=== PATIENT | male | born 2000 | race Caucasian/White ===

== ENCOUNTER 2020-03-20 12:23 | Outpatient (REF) | payer OTHER, SELFPAY ==
[2020-03-20 13:36] LABS: MANUAL DIFF FLAG NO
[2020-03-20 13:52] LABS: Basophils Percent Auto 0.3 % (0-2); Eosinophils Absolute Auto 0.2 X10*3/uL (0.0-0.4); Eosinophils Percent Auto 2.5 % (0-4); Hematocrit 47.8 % (42-52); Hemoglobin 16.1 g/dl (14.0-18.0); Imm Gran Abs Auto 0.05 X10*3/uL (0.00-0.03); Imm Gran Pct Auto 0.5 % (0.0-0.4); Lymphocytes Absolute Auto 2.6 X10*3/uL (1.2-4.9); Lymphocytes Percent Auto 26.4 % (20-40); Mean Corpuscular HGB Conc 33.7 g/dl (31.0-36.0); Mean Platelet Volume 10.4 fL (9.4-12.4); Monocytes Absolute Auto 0.7 X10*3/uL (0.1-1.2); Monocytes Percent Auto 6.7 % (2-11); Neutrophils Absolute Auto 6.1 X10*3/uL (2.0-8.3); Neutrophils Percent Auto 63.6 % (45-73); Platelet Count 331 X10*3/uL (160-400); Red Blood Count 5.56 X10*6/uL (4.60-5.80); Red Cell Distribution Width 11.8 % (11.0-16.0); White Blood Count 9.7 X10*3/uL (4.8-10.8)
[2020-03-20 14:23] LABS: Alanine Aminotransferase 40 U/L (0-40); Alkaline Phosphatase 76 U/L (39-117); Anion Gap 12 (12-20); Aspartate Amino Transferase 22 U/L (5-37); Bilirubin Total 0.6 mg/dL (0.0-1.0); Blood Urea Nitrogen 15 mg/dL (9-16); Calcium 9.7 mg/dL (8.4-10.2); Carbon Dioxide 27 mmol/L (22-29); Chloride 103 mmol/L (96-108); Estimated Glomerular Filt Rate > 60; Glucose Fasting 93 mg/dL (60-99); Potassium 5.2 mmol/l (3.3-5.1); Sodium 137 mmol/L (135-145); Total Protein 7.6 g/dL (6.5-8.0)
[2020-03-20 14:37] LABS: Estimated Average Glucose 97 mg/dL
[2020-03-20 14:43] LABS: Thyroid Stimulating Hormone 1.26 uIU/mL (0.32-4.0)
== END 2020-03-20 12:24 | disposition home or self-care (01) ==
LOC: HO.LAB 12:23
PROVIDERS: PCP Physician Assistant; Visit Provider Physician Assistant
DX: Z13.29 Encounter for screening for other suspected endocrine disorder (principal); I10 Essential (primary) hypertension; E66.01 Morbid (severe) obesity due to excess calories
CPT/HCPCS: 36415; 80053; 83036; 84443; 85025

== ENCOUNTER 2020-03-22 07:42 | Outpatient (REF) | payer OTHER, SELFPAY ==
[2020-03-22 09:19] LABS: Creatinine Urine 239.53 mg/dL; Microalbum/Creatinine Ratio Ur 3.7 ug/mg cr
== END 2020-03-22 07:43 | disposition home or self-care (01) ==
LOC: HO.LNP 07:42
PROVIDERS: Visit Provider Physician Assistant
DX: Z13.29 Encounter for screening for other suspected endocrine disorder (principal); I10 Essential (primary) hypertension; E66.01 Morbid (severe) obesity due to excess calories
CPT/HCPCS: 82043

== ENCOUNTER 2020-06-14 11:53 | Outpatient (REF) | payer OTHER, SELFPAY ==
[2020-06-14 12:32] LABS: MANUAL DIFF FLAG NO
[2020-06-14 12:39] LABS: Basophils Percent Auto 0.5 % (0-2); Eosinophils Absolute Auto 0.2 X10*3/uL (0.0-0.4); Eosinophils Percent Auto 2.3 % (0-4); Hematocrit 47.3 % (42-52); Imm Gran Abs Auto 0.03 X10*3/uL (0.00-0.03); Imm Gran Pct Auto 0.4 % (0.0-0.4); Lymphocytes Absolute Auto 2.5 X10*3/uL (1.2-4.9); Lymphocytes Percent Auto 29.4 % (20-40); Mean Corpuscular HGB Conc 33.8 g/dl (31.0-36.0); Mean Corpuscular Hemoglobin 28.9 pg (27.0-33.0); Mean Corpuscular Volume 85.5 fL (80-98); Mean Platelet Volume 9.9 fL (9.4-12.4); Monocytes Absolute Auto 0.6 X10*3/uL (0.1-1.2); Monocytes Percent Auto 7.3 % (2-11); Neutrophils Absolute Auto 5.1 X10*3/uL (2.0-8.3); Neutrophils Percent Auto 60.1 % (45-73); Platelet Count 338 X10*3/uL (160-400); Red Blood Count 5.53 X10*6/uL (4.60-5.80); Red Cell Distribution Width 11.6 % (11.0-16.0); White Blood Count 8.5 X10*3/uL (4.8-10.8)
[2020-06-14 13:05] LABS: Alanine Aminotransferase 33 U/L (0-40); Albumin Level 4.7 g/dL (3.5-5.0); Alkaline Phosphatase 78 U/L (39-117); Anion Gap 12 (12-20); Aspartate Amino Transferase 20 U/L (5-37); Blood Urea Nitrogen 13 mg/dL (9-16); Calcium 9.5 mg/dL (8.4-10.2); Carbon Dioxide 27 mmol/L (22-29); Chloride 103 mmol/L (96-108); Cholesterol 185 mg/dL; Estimated Glomerular Filt Rate > 60; Glucose Fasting 89 mg/dL (60-99); HDL Cholesterol 45 mg/dL; LDL Cholesterol Calculated 115 mg/dl; Sodium 137 mmol/L (135-145); Total Protein 7.3 g/dL (6.5-8.0); Triglycerides 127 mg/dL
[2020-06-14 13:35] LABS: Microalbumin Urine < 5.0 mg/L
== END 2020-06-14 11:54 | disposition home or self-care (01) ==
LOC: HO.LAB 11:53
PROVIDERS: PCP Physician Assistant; Visit Provider Physician Assistant
DX: I10 Essential (primary) hypertension (principal); E78.1 Pure hyperglyceridemia
CPT/HCPCS: 36415; 80053; 80061; 82043; 85025

== ENCOUNTER 2021-05-23 08:36 | Outpatient (REF) | payer OTHER, SELFPAY ==
--- NOTE | ~2021-05-23 | XR_ITS ---
EXAMINATION: XR WRIST, LEFT CLINICAL INFORMATION: Pain COMPARISON: None TECHNIQUE: PA, lateral, and oblique views of the left wrist. FINDINGS: The bones and soft tissues are normal. No fracture. Alignment is anatomic with normal joint spaces. No erosions or abnormal soft tissue calcifications. XR/XR wrist LT min 3V IMPRESSION: No radiographic evidence of acute osseous changes to explain patient's pain symptoms.
== END 2021-05-23 08:37 | disposition home or self-care (01) ==
LOC: HO.HOSX 08:36
PROVIDERS: Visit Provider Physician Assistant
DX: M67.432 Ganglion, left wrist (principal)
CPT/HCPCS: 73110

== ENCOUNTER 2023-06-26 15:49 | Outpatient (AMB) | payer OTHER, SELFPAY ==
[2023-06-26 15:50] VITALS: BP 116/82; PULSE 75; O2SAT 99; BMI 32.9
--- NOTE | 2023-06-26 15:50 | MHC.PC.OV ---
Vital Signs 06/26/23 15:50 Height 5 ft 5 in Weight 198 lb 0.4 oz BMI 32.9 BP 116/82 Blood Pressure Location Lt brachial Position Sitting Pulse 75 Pulse Source Pulse Oximeter Pulse Oximetry (%) 99 Oxygen Delivery Method Room Air Intake Visit Reasons: Annual PE Intake Note: Patient is here today for a physical. 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 Allergies sulfamethoxazole [From BACTRIM] Allergy (Intermediate, Verified 06/26/23 16:13) HIVES amoxicillin Allergy (Unknown, Verified 06/26/23 16:13) Unknown citalopram [From Celexa] Allergy (Unknown, Verified 06/26/23 16:13) sleep disturbances Sulfa (Sulfonamide Antibiotics) Allergy (Unknown, Verified 06/26/23 16:13) Unknown Medication List - Last Reconciled 06/26/23 by Kannan Ziegler PA-C bupropion HCl 150 mg PO QAM 90 days hydroxyzine HCl 25 mg PO BID PRN 30 days lisinopril 10 mg PO DAILY 90 days sertraline 100 mg PO DAILY 30 days Tobacco use date assessed: 06/26/23 Dental Screening Dental Screen Date: 06/26/23 Did you have a dental visit in the last 12 months?: Yes Did you have a dental problem in the last 6 months where you did not have access to dental care?: No Was dental information given to patient?: Patient has dentist HPI Annual PE HPI Details Patient is a 23-year-old male here today for a annual physical.? Patient has a past medical history significant for anxiety, hypertension, depression, obesity. .. HTN:? Patient's blood pressure acceptable today in office. Continues on daily use of lisinopril 10 mg and feels it has been effective for him. He denies any headaches, blurred vision, chest pain or palpitations. .. EARL: talking to a therapist a feels his anxiety is well controlled, and has been taking hydroxyzine on a PRN basis.? He feels his current dose Wellbutrin is helpful. .. Obesity:? Has been working hard on losing weight.? He has started to do a martial arts class and has been watching his diet.? His managed to lose a small amount of weight since last visit.? His goal weight is to be 195lbs Vaccine: Up-to-date with tetanus, COVID, declines flu shot [facility] Surgical History History of appendectomy History of tonsillectomy Family History Father Myocardial infarction, Onset Age: 38 Mother No problems noted. Social History (Updated 06/26/23 @ 16:16 by Kannan Ziegler PA-C) Housing: Apartment Alcohol intake: current Alcohol intake frequency: holidays/special occasions only Alcohol type: beer Patient Tobacco Use Status: Never used Tobacco e-Cigarette/Vaping Use: Never Used Second Hand Smoke Exposure: No service: No Current occupational status: employed Current occupation: [employer] Cognitive needs: No Hearing needs: No Vision needs: No Questionnaire PHQ-9 Over the last 2 weeks, how often have you been bothered by any of the following problems? 1. Little interest or pleasure in doing things: not at all 2. Feeling down, depressed, or hopeless: not at all 3. Trouble falling or staying asleep, or sleeping too much: not at all 4. Feeling tired or having little energy: not at all 5. Poor appetite or overeating: not at all 6. Feeling bad about yourself - or that you are a failure or have let yourself or your family down: not at all 7. Trouble concentrating on things, such as reading the newspaper or watching television: not at all 8. Moving or speaking so slowly that other people could have noticed. Or the opposite - being so fidgety or restless that you have been moving around a lot more than usual: not at all 9. Thoughts that you would be better off or of hurting yourself in some way: not at all Total score: 0 Depression Screening Interpretation: Negative Depression Screening Done: Yes [id number] - PHQ-9 Billing: Yes Source: Developed by Drs. Damon Del Toro, Abeba Lieberman, Enoch Dumont and colleagues, with an educational jasvir from [employer]. Thrive Questionnaire Date Thrive assessed: 08/20/21 I am a: Patient What is your living situation today?: I have a steady place to live Within the past 12 months, did the food you bought not last and you didn't have the money to get more?: Never true Within the past 12 months, did you worry whether your food would run out before you got money to buy more?: Never true Do you have trouble paying for medicines?: No Do you have trouble getting transportation to medical appointments?: No Do you have trouble paying your heating and electricity bill?: No Do you have trouble taking care of your child, family member or friend?: No Do you have trouble with day-to-day activities such as bathing, preparing meals, shopping, managing finances, etc.?: No Are you currently unemployed and looking for a job?: No Are you interested in more education?: No Please select the resources that you would like help with: None THRIVE Score: 0 AUDIT C Alcohol Use Questionnaire (AUDIT-C) 1. How often do you have a drink containing alcohol?: 2-4 times a month 2. How many drinks containing alcohol do you have on a typical day when you are drinking?: 3 or 4 3. How often do you have six or more drinks on one occasion?: Never Total Score: 3 EARL-7 AMB Questionnaire EARL-7 Date EARL - 7 assessed: 06/26/23 Feeling nervous, anxious, or on edge: 0 = Not at all Not being able to stop or control worryin = Not at all Worrying too much about different things: 0 = Not at all Trouble relaxin = Not at all Being so restless that it is hard to sit still: 0 = Not at all Becoming easily annoyed or irritable: 0 = Not at all Feeling afraid as if something awful might happen: 0 = Not at all Total EARL-7 score (0-4 normal; 5-9 mild; 10-14 moderate; 15-21 severe): 0 Source: Developed by Drs. Damon Del Toro, Abeba Lieberman, Enoch Dumont and colleagues, with an educational jasvir from [employer]. EARL-7 Assessment Billing EARL-7 Assessment Tool: EARL-7 Assessment 02018 Review of Systems Const Denies body aches, Denies chills, Denies excessive sweating, Denies fatigue, Denies fever(s) and Denies headache(s) Eyes Denies blurry vision ENT Denies dysphagia, Denies vertigo, Denies dizziness, Denies headache(s), Denies hearing loss and Denies tinnitus Card Denies chest pain, Denies chest pain with activity, Denies syncope, Denies irregular heart rhythm and Denies dyspnea Resp Denies chest congestion, Denies cough, Denies hemoptysis, Denies dyspnea and Denies wheezing GI Denies abdominal pain, Denies melena, Denies hematochezia, Denies coffee ground emesis, Denies dysphagia, Denies diarrhea, Denies nausea and Denies vomiting Denies difficulty urinating, Denies dysuria, Denies urinary frequency, Denies urinary hesitancy and Denies urinary urgency Musc Denies arthralgias, Denies limited range of motion, Denies muscle cramps and Denies muscle weakness Skin/Breast Denies rash and Denies skin ulcer Neuro Denies Abnormal speech present, Denies confusion, Denies vertigo, Denies dizziness, Denies syncope, Denies headache(s), Denies memory loss and Denies seizure-like activity Psych Denies anxiety, Denies confusion, Denies depression, Denies memory loss, Denies panic attacks and Denies paranoia Endo Denies excessive sweating, Denies fatigue, Denies flushing, Denies polydipsia and Denies polyuria Aller/Immun Denies wheezing Physical exam (Primary Care) Vital Signs: Last Vital Signs Pulse 75 06/26/23 15:50 BP 116/82 06/26/23 15:50 Pulse Ox 99 06/26/23 15:50 Oxygen Delivery Method Room Air 06/26/23 15:50 BMI result Body Mass Index 32.9 BMI Assessment/Plan discussion: High Tobacco/Smoking Status: Tobacco use Status Tobacco use date assessed 06/26/23 06/26/23 15:51 Patient Tobacco Use Status Never used Tobacco 06/26/23 15:51 Tobacco use type 04/25/21 11:19 e-Cigarette/Vaping Use Never Used 06/26/23 15:51 PHQ-9: PHQ-9 Score PHQ-9: Total score 0 06/26/23 16:08 Depression Screening Interpretation: Negative Thrive Assessment: Date of Thrive Assessment Date Thrive assessed 08/20/21 06/26/23 15:51 Const Other: Obese General: cooperative, comfortable, no acute distress, alert and awake; No confusion Orientation/consciousness: oriented to person, oriented to place, patient oriented x3 and No confusion HENMT Head: Yes normocephalic Ears: external ears normal and TM's normal bilaterally Face and sinus: No sinus tenderness Mouth: Normal oral and palatal mucosa present and tongue normal Teeth and gingiva: dentition normal and gingiva normal Throat: Yes posterior oropharynx normal, Yes tonsils normal and Yes uvula midline Eyes Conjunctivae: conjunctivae normal Sclerae: sclerae normal Pupils: Equal, round and reactive pupils present EOM: EOMs intact bilaterally Direct Ophthalmoscopy: No no photophobia Neck Neck: Yes no lymphadenopathy, No tender and Yes no JVD Thyroid: Thyroid normal Carotids: no bruits Chest Chest palpation & inspection: no tenderness Resp Effort & Inspection: normal respiratory effort, no audible wheezes, not labored and no stridor Auscultation: no crackles, no rales, no rhonchi and no wheezes Cardio Jugular venous distension: no JVD Rate: regular rate, not bradycardic and not tachycardic Rhythm: regular rhythm Bruits: no carotid bruits Peripheral pulses: Peripheral pulses 2+ throughout GI Inspection: Yes normal to inspection, No abdominal wall ecchymosis and No visible herniation Palpation (GI): Soft to palpation, nontender, no guarding, not rigid and No hepatosplenomegaly present Auscultation: normoactive bowel sounds General: Yes no CVA tenderness Back/Spine/Pelvis Back: no CVA tenderness and No back tenderness Cervical Spine: cervical ROM normal Thoracic/Lumbar Spine: thoracic and lumbar spine normal to inspection, straight leg raise negative bilaterally, No thoraco-lumbar ROM limited and No lumbar spinal tenderness Skin Lesions: no lesions Rashes: no rashes Wounds: no wounds Neuro General: oriented to person, oriented to place, patient oriented x3, CN's II-XI intact bilaterally and No confusion Cranial nerves: Yes Equal, round and reactive pupils present and Yes Normal accommodation reflex present Cognition (Neuro): normal cognition Speech: No Abnormal speech present Gait exam (Neuro): Normal gait present Motor exam (neuro): 5/5 motor strength present throughout Extrem Right upper extremity: full ROM; no cyanosis Left upper extremity: full ROM; no cyanosis Right lower extremity: no edema Left lower extremity: no edema Psych Appearance: grossly normal Mental Status: mental status grossly normal Affect: normal affect Attitude: cooperative Thought process: Normal thought process present Assessment and Plan Assessment & Plan (1) Annual physical exam: Code(s): Z00.00 - Encounter for general adult medical examination without abnormal findings (2) MDD (major depressive disorder): Code(s): F32.9 - Major depressive disorder, single episode, unspecified Qualifiers: Major depression recurrence: recurrent Active/Remission status: currently active Major depression episode severity: mild Qualified Code(s): F33.0 - Major depressive disorder, recurrent, mild Plan: Patient's depression is well controlled with current dose antidepressant medication. Denies any SI or HI at this time. (3) EARL (generalized anxiety disorder): Code(s): F41.1 - Generalized anxiety disorder Plan: Patient's generalized anxiety disorder has been fairly well controlled with current anti anxiety lytic medication. (4) Hypertriglyceridemia: Code(s): E78.1 - Pure hyperglyceridemia Plan: Advised patient to get fasting lipids done to evaluate his triglycerides. He has been working on lifestyle modifications to reduce his high cholesterol foods. (5) Obese: Code(s): E66.9 - Obesity, unspecified Qualifiers: Obesity type: due to excess calories Obesity classification: adult class 1 (BMI 30 - 34.9) Serious obesity comorbidity presence: without serious comorbidity Body mass index: BMI 31.0-31.9 Qualified Code(s): E66.09 - Other obesity due to excess calories; Z68.31 - Body mass index [BMI] 31.0-31.9, adult Plan: Patient does understand his BMI is over 30 will continue working on better eating habits and being more physically active to reduce his weight. (6) HTN (hypertension): Code(s): I10 - Essential (primary) hypertension Qualifiers: Hypertension type: essential hypertension Qualified Code(s): I10 - Essential (primary) hypertension Plan: Patient's blood pressure acceptable today in office. Will continue his current dose of lisinopril with goal blood pressure to remain below 140/90 Orders: Orders Microalbumin, Random (w Creat) Today I10 - Essential (primary) hypertension Comprehensive [place]. Panel Fast Today I10 - Essential (primary) hypertension Lipid Panel Today E78.1 - Pure hyperglyceridemia TSH reflex Free T4 Today E78.1 - Pure hyperglyceridemia Medications: Refilled lisinopril 10 mg PO DAILY 90 days 90 tabs 1RF I10 - Essential (primary) hypertension Coding Level of Care Code Est Pt Prev Care [id number]([id number]) Diagnoses Annual physical exam Z00.00 Mild episode of recurrent major depressive disorder F33.0 Major depression recurrence: recurrent Active/Remission status: currently active Major depression episode severity: mild EARL (generalized anxiety disorder) F41.1 Hypertriglyceridemia E78.1 Class 1 obesity due to excess calories without serious comorbidity with body mass index (BMI) of 31.0 to 31.9 in adult E66.09; Z68.31 Obesity type: due to excess calories Obesity classification: adult class 1 (BMI 30 - 34.9) Serious obesity comorbidity presence: without serious comorbidity Body mass index: BMI 31.0-31.9 Essential hypertension I10 Hypertension type: essential hypertension Additional Codes EARL-7 Assessment Billing - EARL-7 Assessment Tool: EARL-7 Assessment [id number] ([id number])
== END 2023-06-26 16:30 | disposition home or self-care (01) ==
PROVIDERS: PCP Physician Assistant; Visit Provider Physician Assistant
DX: Z00.00 Encounter for general adult medical examination without abnormal findings (principal); F33.0 Major depressive disorder, recurrent, mild; E66.09 Other obesity due to excess calories; Z68.31 Body mass index [BMI] 31.0-31.9, adult; F41.1 Generalized anxiety disorder; E78.1 Pure hyperglyceridemia; I10 Essential (primary) hypertension
CPT/HCPCS: 99395

== ENCOUNTER 2023-12-30 15:50 | Outpatient (AMB) | payer OTHER, SELFPAY ==
[2023-12-30 15:52] VITALS: BP 112/74; PULSE 84; O2SAT 98; BMI 33.2
--- NOTE | 2023-12-30 15:52 | A.OFFPC_ITS ---
Vital Signs 12/30/23 15:52 Height 5 ft 5 in Weight 199 lb 4 oz BMI 33.2 BP 112/74 Blood Pressure Location Lt brachial Position Sitting Pulse 84 Pulse Source Pulse Oximeter Pulse Oximetry (%) 98 Oxygen Delivery Method Room Air Intake Visit Reasons: f/u HTN/ EARL Director Money Required: No Accompanied by: Self / Same As Patient Allergies sulfamethoxazole [From BACTRIM] Allergy (Intermediate, Verified 12/30/23 16:02) HIVES amoxicillin Allergy (Unknown, Verified 12/30/23 16:02) Unknown citalopram [From Celexa] Allergy (Unknown, Verified 12/30/23 16:02) sleep disturbances Sulfa (Sulfonamide Antibiotics) Allergy (Unknown, Verified 12/30/23 16:02) Unknown Medication List - Last Reconciled 12/30/23 by Kannan Ziegler PA-C bupropion HCl XL 150 mg PO QAM 90 days hydroxyzine HCl 25 mg PO BID PRN 30 days lisinopril 10 mg PO DAILY 90 days sertraline 100 mg PO DAILY 30 days Tobacco use date assessed: 06/26/23 Dental Screening Dental Screen Date: 06/26/23 HPI f/u HTN/ EARL HPI Details Patient is a 23-year-old male here today for a follow-up visit.? Patient has a past medical history significant for anxiety, hypertension, depression, obesity. Concern--> reports a 2 week history of left knee pain. No notable trauma. Has been using Tylenol and resting with only limited relief. He reports he has not lost any function or range of motion. PLAN: Will switch to using an NSAID for inflammation. .. HTN:? Patient's blood pressure acceptable today in office. Continues on daily use of lisinopril 10 mg and feels it has been effective for him. He denies any headaches, blurred vision, chest pain or palpitations. .. EARL: talking to a therapist a feels his anxiety is well controlled, and has been taking hydroxyzine on a PRN basis.? He feels his current dose Wellbutrin is helpful. [facility] Surgical History History of appendectomy History of tonsillectomy Family History Father Myocardial infarction, Onset Age: 38 Mother No problems noted. Social History Housing: Apartment Alcohol intake: current Alcohol intake frequency: holidays/special occasions only Alcohol type: beer Patient Tobacco Use Status: Never used Tobacco e-Cigarette/Vaping Use: Never Used Second Hand Smoke Exposure: No service: No Current occupational status: employed Current occupation: [employer] Cognitive needs: No Hearing needs: No Vision needs: No Questionnaire Thrive Questionnaire Date Thrive assessed: 08/20/21 EARL-7 AMB Questionnaire EARL-7 Date EARL - 7 assessed: 06/26/23 Source: Developed by Drs. Damon Del Toro, Abeba Lieberman, Enoch Dumont and colleagues, with an educational jasvir from [employer]. Review of Systems Const Denies headache(s) Eyes Denies loss of vision ENT Denies vertigo, Denies dizziness, Denies headache(s) and Denies sore throat Card Denies chest pain, Denies leg edema and Denies lightheadedness Resp Denies cough, Denies hemoptysis and Denies wheezing GI Denies abdominal pain, Denies melena, Denies constipation, Denies diarrhea and Denies vomiting Denies dysuria, Denies urinary frequency and Denies urinary urgency Musc Denies arthralgias, Denies joint swelling, Denies numbness and Denies tingling Neuro Denies Abnormal speech present, Denies behavioral changes, Denies vertigo, Denies dizziness, Denies headache(s), Denies loss of vision, Denies memory loss, Denies numbness and Denies tingling Psych Denies anxiety, Denies behavioral changes, Denies depression, Denies memory loss and Denies panic attacks Berny/Lymph Denies easy bleeding and Denies easy bruising Aller/Immun Denies wheezing Physical exam (Primary Care) Vital Signs: Last Vital Signs Pulse 84 12/30/23 15:52 BP 112/74 12/30/23 15:52 Pulse Ox 98 12/30/23 15:52 Oxygen Delivery Method Room Air 12/30/23 15:52 BMI result Body Mass Index 33.2 Tobacco/Smoking Status: Tobacco use Status Tobacco use date assessed 06/26/23 12/30/23 15:54 Patient Tobacco Use Status Never used Tobacco 12/30/23 15:54 Tobacco use type 04/25/21 11:19 e-Cigarette/Vaping Use Never Used 12/30/23 15:54 Thrive Assessment: Date of Thrive Assessment Date Thrive assessed 08/20/21 12/30/23 15:54 Const General: healthy appearing, no acute distress, alert and awake Nutritional Appearance: well nourished Orientation/consciousness: oriented to person, oriented to place and oriented to time HENMT Ears: TM's normal bilaterally General nose exam: Normal nasal mucous membranes and turbinates present Eyes Conjunctivae: conjunctivae normal Sclerae: sclerae normal Pupils: Equal, round and reactive pupils present Neck Neck: Yes no lymphadenopathy and Yes no JVD Thyroid: Thyroid normal Carotids: no bruits Resp Effort & Inspection: normal respiratory effort and not tachypneic Auscultation: no crackles, no rales, no rhonchi and no wheezes Cardio Rate: regular rate Rhythm: regular rhythm Heart sounds: no murmurs and normal S1 and S2 GI Palpation (GI): Soft to palpation, nontender, no hepatomegaly and no splenomegaly Auscultation: normal bowel sounds Skin General skin exam: no rashes or lesions noted and dry skin Neuro General: oriented to person, oriented to place and oriented to time Cranial nerves: Yes Equal, round and reactive pupils present Speech: No Abnormal speech present Gait exam (Neuro): Normal gait present Motor exam (neuro): no tremor noted Extrem Right upper extremity: full ROM Left upper extremity: full ROM Right lower extremity: full ROM; no edema Left lower extremity: full ROM; no edema Psych Mental Status: mental status grossly normal Speech and movement: Normal speech and movement present Affect: normal affect Attitude: cooperative Thought process: Normal thought process present Assessment and Plan Assessment & Plan (1) HTN (hypertension): Code(s): I10 - Essential (primary) hypertension Qualifiers: Hypertension type: essential hypertension Qualified Code(s): I10 - Essential (primary) hypertension Plan: Patient's blood pressure acceptable today in office. Will continue his current dose of lisinopril with goal blood pressure to remain below 140/90 (2) Hypertriglyceridemia: Code(s): E78.1 - Pure hyperglyceridemia Plan: Advised patient to get fasting lipids done to evaluate his triglycerides. He has been working on lifestyle modifications to reduce his high cholesterol foods. (3) Left knee pain: Code(s): M25.562 - Pain in left knee Qualifiers: Chronicity: acute Qualified Code(s): M25.562 - Pain in left knee Plan: Reports some anterior left knee pain over the last few weeks. He denies any notable trauma. Will continue conservative treatment with NSAID and resting. Medications: Refilled sertraline 100 mg PO DAILY 30 days 30 tabs 6RF F41.1 - Generalized anxiety disorder Patient Instructions: Goal: Blood pressure to remain below 140/90 Barrier: Adherence to physical activity and healthy eating habits Coding Level of Care Code Est Pt Level 4 (02249) Diagnoses Essential hypertension I10 Hypertension type: essential hypertension Hypertriglyceridemia E78.1 Acute pain of left knee M25.562 Chronicity: acute
== END 2023-12-30 16:13 | disposition home or self-care (01) ==
PROVIDERS: PCP Physician Assistant; Visit Provider Physician Assistant
DX: I10 Essential (primary) hypertension (principal); E78.1 Pure hyperglyceridemia; M25.562 Pain in left knee
CPT/HCPCS: 99214

== ENCOUNTER 2024-08-26 15:28 | Outpatient (AMB) | payer OTHER, SELFPAY ==
--- NOTE | 2024-08-26 15:34 | MHC.PC.OV ---
Vital Signs 08/26/24 15:38 Height 5 ft 5 in Weight 194 lb 6 oz BMI 32.3 BP 112/70 Blood Pressure Location Lt brachial Position Sitting Pulse 96 Pulse Source Pulse Oximeter Temp 97.5 F Temp Source Temporal Artery Scan Pulse Oximetry (%) 99 Oxygen Delivery Method Room Air Intake Visit Reasons: PE Game Operator Required: No Accompanied by: Self / Same As Patient Allergies sulfamethoxazole [From BACTRIM] Allergy (Intermediate, Verified 08/26/24 16:21) HIVES amoxicillin Allergy (Unknown, Verified 08/26/24 16:21) Unknown citalopram [From Celexa] Allergy (Unknown, Verified 08/26/24 16:21) sleep disturbances Sulfa (Sulfonamide Antibiotics) Allergy (Unknown, Verified 08/26/24 16:21) Unknown Medication List - Last Reconciled 08/26/24 by Kannan Ziegler PA-C bupropion HCl XL 150 mg PO QAM 90 days hydroxyzine HCl 25 mg PO BID PRN 30 days lisinopril 10 mg PO DAILY 90 days sertraline 100 mg PO DAILY 30 days Tobacco use date assessed: 08/26/24 Dental Screening Dental Screen Date: 08/26/24 Did you have a dental visit in the last 12 months?: Yes Did you have a dental problem in the last 6 months where you did not have access to dental care?: No Was dental information given to patient?: Patient has dentist HPI PE HPI Details Patient is a 24-year-old male here today for a routine annual physical.? Patient has a past medical history significant for anxiety, hypertension, depression, obesity. Concern--> reports some medial/anterior left knee discomfort and crepitus when flexing. He can not recall any notable recent injury. .. HTN:? Patient's blood pressure acceptable today in office. Continues on daily use of lisinopril 10 mg and feels it has been effective for him. He denies any headaches, blurred vision, chest pain or palpitations. .. Class 1 Obesity: Patient does understand his BMI is over 30 will continue working on being more physically active and adapting to better eating habits to reduce his weight .. EARL: talking to a therapist a feels his anxiety is well controlled, and has been taking hydroxyzine on a PRN basis.? He feels his current dose Wellbutrin is helpful Vaccine: Up-to-date with tetanus, COVID, declines flu shot PFSH Surgical History History of appendectomy History of tonsillectomy Family History Father Myocardial infarction, Onset Age: 38 Mother No problems noted. Social History (Updated 08/26/24 @ 16:22 by Kannan Ziegler PA-C) Housing: Apartment Alcohol intake: current Alcohol intake frequency: holidays/special occasions only Alcohol type: beer Patient Tobacco Use Status: Never used Tobacco e-Cigarette/Vaping Use: Never Used Second Hand Smoke Exposure: No Substance Use Type: Marijuana service: No Current occupational status: employed Current occupation: [employer] Cognitive needs: No Hearing needs: No Vision needs: No Questionnaire PHQ-9 Over the last 2 weeks, how often have you been bothered by any of the following problems? 1. Little interest or pleasure in doing things: not at all 2. Feeling down, depressed, or hopeless: several days 3. Trouble falling or staying asleep, or sleeping too much: not at all 4. Feeling tired or having little energy: not at all 5. Poor appetite or overeating: not at all 6. Feeling bad about yourself - or that you are a failure or have let yourself or your family down: not at all 7. Trouble concentrating on things, such as reading the newspaper or watching television: not at all 8. Moving or speaking so slowly that other people could have noticed. Or the opposite - being so fidgety or restless that you have been moving around a lot more than usual: not at all 9. Thoughts that you would be better off or of hurting yourself in some way: not at all Total score: 1 Depression Screening Interpretation: Negative Depression Screening Done: Yes 78549 - PHQ-9 Billing: Yes Source: Developed by Drs. Damon Del Toro, Abeba Lieberman, Enoch Dumont and colleagues, with an educational jasvir from [employer]. Thrive Questionnaire Date Thrive assessed: 08/26/24 I am a: Patient What is your living situation today?: I have a steady place to live Within the past 12 months, did the food you bought not last and you didn't have the money to get more?: Never true Within the past 12 months, did you worry whether your food would run out before you got money to buy more?: Never true Do you have trouble paying for medicines?: No Do you have trouble getting transportation to medical appointments?: No Do you have trouble paying your heating and electricity bill?: No Do you have trouble taking care of your child, family member or friend?: No Do you have trouble with day-to-day activities such as bathing, preparing meals, shopping, managing finances, etc.?: No Are you currently unemployed and looking for a job?: No Are you interested in more education?: Yes Please select the resources that you would like help with: None Currently or been in a relationship where the following occur: No concerns reported THRIVE Score: 0 AUDIT C Alcohol Use Questionnaire (AUDIT-C) 1. How often do you have a drink containing alcohol?: Monthly or less 2. How many drinks containing alcohol do you have on a typical day when you are drinking?: 3 or 4 3. How often do you have six or more drinks on one occasion?: Less than monthly Total Score: 3 EARL-7 AMB Questionnaire AERL-7 Date EARL - 7 assessed: 08/26/24 Feeling nervous, anxious, or on edge: 1 = Several days Not being able to stop or control worryin = Not at all Worrying too much about different things: 1 = Several days Trouble relaxin = Several days Being so restless that it is hard to sit still: 0 = Not at all Becoming easily annoyed or irritable: 1 = Several days Feeling afraid as if something awful might happen: 0 = Not at all Total EARL-7 score (0-4 normal; 5-9 mild; 10-14 moderate; 15-21 severe): 4 Source: Developed by Drs. Damon Del Toro, Abeba Lieberman, Enoch Dumont and colleagues, with an educational jasvir from [employer]. EARL-7 Assessment Billing EARL-7 Assessment Tool: EARL-7 Assessment 83581 Review of Systems Const Denies body aches, Denies chills, Denies excessive sweating, Denies fatigue, Denies fever(s) and Denies headache(s) Eyes Denies blurry vision ENT Denies dysphagia, Denies vertigo, Denies dizziness, Denies headache(s), Denies hearing loss and Denies tinnitus Card Denies chest pain, Denies chest pain with activity, Denies syncope, Denies irregular heart rhythm and Denies dyspnea Resp Denies chest congestion, Denies cough, Denies hemoptysis, Denies dyspnea and Denies wheezing GI Denies abdominal pain, Denies melena, Denies hematochezia, Denies coffee ground emesis, Denies dysphagia, Denies diarrhea, Denies nausea and Denies vomiting Denies difficulty urinating, Denies dysuria, Denies urinary frequency, Denies urinary hesitancy and Denies urinary urgency Musc Denies arthralgias, Denies limited range of motion, Denies muscle cramps and Denies muscle weakness Skin/Breast Denies rash and Denies skin ulcer Neuro Denies Abnormal speech present, Denies confusion, Denies vertigo, Denies dizziness, Denies syncope, Denies headache(s), Denies memory loss and Denies seizure-like activity Psych Denies anxiety, Denies confusion, Denies depression, Denies memory loss, Denies panic attacks and Denies paranoia Endo Denies excessive sweating, Denies fatigue, Denies flushing, Denies polydipsia and Denies polyuria Aller/Immun Denies wheezing Physical exam (Primary Care) Vital Signs: Last Vital Signs Temp 97.5 F 08/26/24 15:38 Pulse 96 08/26/24 15:38 BP 112/70 08/26/24 15:38 Pulse Ox 99 08/26/24 15:38 Oxygen Delivery Method Room Air 08/26/24 15:38 BMI result Body Mass Index 32.3 BMI Assessment/Plan discussion: High BMI High, discussed plan: lifestyle, weight reduction, dietary and physical activity Tobacco/Smoking Status: Tobacco use Status Tobacco use date assessed 08/26/24 08/26/24 15:40 Patient Tobacco Use Status Never used Tobacco 08/26/24 16:22 Tobacco use type 04/25/21 11:19 e-Cigarette/Vaping Use Never Used 08/26/24 16:22 PHQ-9: PHQ-9 Score PHQ-9: Total score 1 08/26/24 16:21 Depression Screening Interpretation: Negative Thrive Assessment: Date of Thrive Assessment Date Thrive assessed 08/26/24 08/26/24 15:35 Currently or been in a relationship where the following occur: No concerns reported Const General: cooperative, comfortable, no acute distress, alert and awake; No confusion Orientation/consciousness: oriented to person, oriented to place, patient oriented x3 and No confusion [facility] Head: Yes normocephalic Ears: external ears normal and TM's normal bilaterally Face and sinus: No sinus tenderness Mouth: Normal oral and palatal mucosa present and tongue normal Teeth and gingiva: dentition normal and gingiva normal Throat: Yes posterior oropharynx normal, Yes tonsils normal and Yes uvula midline Eyes Conjunctivae: conjunctivae normal Sclerae: sclerae normal Pupils: Equal, round and reactive pupils present EOM: EOMs intact bilaterally Direct Ophthalmoscopy: No no photophobia Neck Neck: Yes no lymphadenopathy, No tender and Yes no JVD Thyroid: Thyroid normal Carotids: no bruits Chest Chest palpation & inspection: no tenderness Resp Effort & Inspection: normal respiratory effort, no audible wheezes, not labored and no stridor Auscultation: no crackles, no rales, no rhonchi and no wheezes Cardio Jugular venous distension: no JVD Rate: regular rate, not bradycardic and not tachycardic Rhythm: regular rhythm Bruits: no carotid bruits Peripheral pulses: Peripheral pulses 2+ throughout GI Inspection: Yes normal to inspection, No abdominal wall ecchymosis and No visible herniation Palpation (GI): Soft to palpation, nontender, no guarding, not rigid and No hepatosplenomegaly present Auscultation: normoactive bowel sounds General: Yes no CVA tenderness Back/Spine/Pelvis Back: no CVA tenderness and No back tenderness Cervical Spine: cervical ROM normal Thoracic/Lumbar Spine: thoracic and lumbar spine normal to inspection, straight leg raise negative bilaterally, No thoraco-lumbar ROM limited and No lumbar spinal tenderness Skin Lesions: no lesions Rashes: no rashes Wounds: no wounds Neuro General: oriented to person, oriented to place, patient oriented x3, CN's II-XI intact bilaterally and No confusion Cranial nerves: Yes Equal, round and reactive pupils present and Yes Normal accommodation reflex present Cognition (Neuro): normal cognition Speech: No Abnormal speech present Gait exam (Neuro): Normal gait present Motor exam (neuro): 5/5 motor strength present throughout Extrem Right upper extremity: full ROM; no cyanosis Left upper extremity: full ROM; no cyanosis Right lower extremity: no edema Left lower extremity: no edema Psych Appearance: grossly normal Mental Status: mental status grossly normal Affect: normal affect Attitude: cooperative Thought process: Normal thought process present Coding Level of Care Code Est Pt Prev Care 18-39y([id number]) Diagnoses Annual physical exam Z00.00 EARL (generalized anxiety disorder) F41.1 Essential hypertension I10 Hypertension type: essential hypertension Mild episode of recurrent major depressive disorder F33.0 Active/Remission status: currently active Major depression episode severity: mild Major depression recurrence: recurrent Class 1 obesity E66.811 Additional Codes EARL-7 Assessment Billing - EARL-7 Assessment Tool: EARL-7 Assessment 55094 ([id number]) PHQ-9 - 83102 - PHQ-9 Billing: Yes ([id number]) Assessment & Plan Assessment & Plan (1) Annual physical exam: Code(s): Z00.00 - Encounter for general adult medical examination without abnormal findings Category: Medical Plan: As per HPI (2) EARL (generalized anxiety disorder): Code(s): F41.1 - Generalized anxiety disorder Category: Medical Plan: Will continue patient on current Wellbutrin, sertraline and hydroxyzine to treat his anxiety. He is talking to a therapist now and feels well. (3) HTN (hypertension): Code(s): I10 - Essential (primary) hypertension Category: Medical Qualifiers: Hypertension type: essential hypertension Qualified Code(s): I10 - Essential (primary) hypertension Plan: Patient's blood pressure acceptable today in office. Will continue his current dose of lisinopril 10 mg. Blood pressure goal is to be below 140/90 (4) MDD (major depressive disorder): Code(s): F32.9 - Major depressive disorder, single episode, unspecified Category: Medical Qualifiers: Active/Remission status: currently active Major depression episode severity: mild Major depression recurrence: recurrent Qualified Code(s): F33.0 - Major depressive disorder, recurrent, mild Plan: Patient's PHQ-9 score 0, does have history of depression thus continues on sertraline 100 mg and Wellbutrin 150 with good effect. (5) Class 1 obesity: Code(s): E66.811 - Obesity, class 1 Category: Medical Plan: Patient does understand his BMI is over 30 will work on being more physically active and adapting to better eating habits to reduce his weight Patient Instructions: Goal: Blood pressure to be below 140/90 Barriers: adherence to physical activity and healthy eating habits
[2024-08-26 15:38] VITALS: BP 112/70; PULSE 96; TEMP 36.4; O2SAT 99; BMI 32.3
== END 2024-08-26 16:37 | disposition home or self-care (01) ==
LOC: HO.HMCH 15:29
PROVIDERS: PCP Physician Assistant; Visit Provider Physician Assistant
DX: Z00.00 Encounter for general adult medical examination without abnormal findings (principal); F33.0 Major depressive disorder, recurrent, mild; E66.811 Obesity, class 1; Z68.32 Body mass index [BMI] 32.0-32.9, adult; F41.1 Generalized anxiety disorder; I10 Essential (primary) hypertension

== ENCOUNTER → 2024-08-26 15:28 | Outpatient (BNVA) | payer OTHER, SELFPAY | PROVIDERS: PCP Physician Assistant; Visit Provider Physician Assistant | DX: Z00.00 Encounter for general adult medical examination without abnormal findings (principal); F41.1 Generalized anxiety disorder; I10 Essential (primary) hypertension; F33.0 Major depressive disorder, recurrent, mild; E66.811 Obesity, class 1; Z68.32 Body mass index [BMI] 32.0-32.9, adult; Z79.899 Other long term (current) drug therapy | CPT/HCPCS: 96127 ==

== ENCOUNTER 2025-04-19 08:08 | Outpatient (REF) | payer OTHER, SELFPAY ==
[2025-04-19 08:37] LABS: Hematocrit 45.4 % (42.0-52.0); Hemoglobin 15.6 g/dl (14.0-18.0); Mean Corpuscular HGB Conc 34.4 g/dl (31.0-36.0); Mean Corpuscular Hemoglobin 29.4 pg (27.0-33.0); Mean Corpuscular Volume 85.7 fL (80.0-98.0); NRBC Abs Auto 0.000 X10*3/uL (0.0-0.012); NRBC Pct Auto 0.0 /100WBC (0.0-0.2); Platelet Count 281 X10*3/uL (160-400); Red Blood Count 5.30 X10*6/uL (4.60-5.80); White Blood Count 10.1 X10*3/uL (4.8-10.8)
[2025-04-19 09:10] LABS: Alanine Aminotransferase 44 U/L (0-40); Albumin Level 4.6 g/dL (3.5-5.0); Alkaline Phosphatase 83 U/L (39-117); Anion Gap 7 (12-20); Aspartate Amino Transferase 31 U/L (5-37); Blood Urea Nitrogen 14 mg/dL (9-16); Calcium 9.1 mg/dL (8.4-10.2); Carbon Dioxide 29 mmol/L (22-29); Chloride 108 mmol/L (96-108); Cholesterol 203 mg/dL (<200); Estimated Glomerular Filt Rate > 60; HDL Cholesterol 45 mg/dL (>40); Potassium 4.2 mmol/L (3.3-5.1); Sodium 140 mmol/L (135-145); Total Protein 7.0 g/dL (6.5-8.0); Triglycerides 270 mg/dL (<150)
[2025-04-19 10:03] LABS: Microalbum/Creatinine Ratio Ur 3.4 ug/mg cr (<30)
== END 2025-04-19 08:09 | disposition home or self-care (01) ==
LOC: HO.LAB 08:08
PROVIDERS: PCP Physician Assistant; Visit Provider Physician Assistant
DX: I10 Essential (primary) hypertension (principal); E78.1 Pure hyperglyceridemia
CPT/HCPCS: 36415; 80053; 80061; 82043; 82570; 85027

== ENCOUNTER 2025-04-20 15:30 | Outpatient (AMB) | payer OTHER, SELFPAY ==
--- NOTE | 2025-04-20 15:46 | MHC.PC.OV ---
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 Accompanied by: Self / Same As Patient Allergies sulfamethoxazole (From BACTRIM) Allergy (Intermediate, Verified 04/20/25 15:55) HIVES amoxicillin Allergy (Unknown, Verified 04/20/25 15:55) Unknown citalopram (From Celexa) Allergy (Unknown, Verified 04/20/25 15:55) sleep disturbances Sulfa (Sulfonamide Antibiotics) Allergy (Unknown, Verified 04/20/25 15:55) Unknown Medication List - Last Reconciled 04/20/25 by Kannan Ziegler PA-C bupropion HCl XL 150 mg PO QAM 90 days hydroxyzine HCl 25 mg PO BID PRN 30 days lisinopril 10 mg PO DAILY 90 days sertraline 100 mg PO DAILY 30 days Tobacco use date assessed: 04/20/25 Dental Screening Dental Screen Date: 04/20/25 Did you have a dental visit in the last 12 months?: Yes Did you have a dental problem in the last 6 months where you did not have access to dental care?: No Was dental information given to patient?: Patient has dentist HPI f/u htn HPI Details Patient is a 24-year-old male here today for a follow-up visit. ? Patient has a past medical history significant for anxiety, hypertension, depression, obesity. Concern--> .. HTN:? Patient's blood pressure acceptable today in office. Continues on daily use of lisinopril 10 mg and feels it has been effective for him. He denies any headaches, blurred vision, chest pain or palpitations. .. Class 1 Obesity: Patient does understand his BMI is over 30 will continue working on being more physically active and adapting to better eating habits to reduce his weight .. EARL: talking to a therapist a feels his anxiety is well controlled, and has been taking hydroxyzine on a PRN basis.? He feels his current dose Wellbutrin is helpful [facility] Surgical History History of appendectomy History of tonsillectomy Family History Father Myocardial infarction, Onset Age: 38 Mother No problems noted. Social History Housing: Apartment Alcohol intake: current Alcohol intake frequency: holidays/special occasions only Alcohol type: beer Patient Tobacco Use Status: Never used Tobacco e-Cigarette/Vaping Use: Never Used Second Hand Smoke Exposure: No Substance Use Type: Marijuana service: No Current occupational status: employed Current occupation: [employer] Cognitive needs: No Hearing needs: No Vision needs: No Questionnaire Thrive Questionnaire Date Thrive assessed: 04/20/25 I am a: Patient What is your living situation today?: I have a steady place to live Within the past 12 months, did the food you bought not last and you didn't have the money to get more?: Never true Within the past 12 months, did you worry whether your food would run out before you got money to buy more?: Never true Do you have trouble paying for medicines?: No Do you have trouble getting transportation to medical appointments?: No Do you have trouble paying your heating and electricity bill?: No Do you have trouble taking care of your child, family member or friend?: No Do you have trouble with day-to-day activities such as bathing, preparing meals, shopping, managing finances, etc.?: No Are you currently unemployed and looking for a job?: No Are you interested in more education?: Yes Please select the resources that you would like help with: None Currently or been in a relationship where the following occur: No concerns reported THRIVE Score: 0 EARL-7 AMB Questionnaire EARL-7 Date EARL - 7 assessed: 08/26/24 Source: Developed by Drs. Damon Del Toro, Abeba Lieberman, Enoch Dumont and colleagues, with an educational jasvir from [employer]. Physical exam (Primary Care) Vital Signs: Last Vital Signs Pulse 77 04/20/25 15:47 Resp 18 04/20/25 15:47 BP 124/72 04/20/25 15:47 Pulse Ox 98 04/20/25 15:47 Oxygen Delivery Method Room Air 04/20/25 15:47 BMI result Body Mass Index 34.1 Tobacco/Smoking Status: Tobacco use Status Tobacco use date assessed 04/20/25 04/20/25 15:52 Patient Tobacco Use Status Never used Tobacco 04/20/25 15:52 Tobacco use type 04/25/21 11:19 e-Cigarette/Vaping Use Never Used 04/20/25 15:52 Thrive Assessment: Date of Thrive Assessment Date Thrive assessed 04/20/25 04/20/25 15:52 Currently or been in a relationship where the following occur: No concerns reported Office Procedures Flu Questionnaire Does the patient have a severe egg allergy?: No Does the patient have severe life threatening allergies?: No Does the patient have a fever or illness today?: No Has the patient ever had Guillain-[place] Syndrome?: No Has the patient ever had any past reaction to a flu shot?: No Immunizations Fluarix [id number] (PF) 45 mcg (15 mcg x 3)/0.5 mL IM syringe Performing Provider: Kannan Ziegler PA-C [facility] [place] Administered by: QUAN Miller on 04/20/25 16:18 Dose Route Admin Location Dispensed Lot Number Expiration Date [facility] [employer] 0.5 mL IM Left Deltoid 0.5 mL [id number] 11/08/25 [id number] [employer] VIS Given Date VIS Provided VIS Publication Date 04/20/25 Single Vaccine 24 Eligibility Eligibility Date Funding Source Not [facility] Eligible 04/20/25 Private Coding Diagnoses EARL (generalized anxiety disorder) F41.1 Essential hypertension I10 Hypertension type: essential hypertension Mild episode of recurrent major depressive disorder F33.0 Active/Remission status: currently active Major depression episode severity: mild Major depression recurrence: recurrent Class 1 obesity E66.811 Assessment & Plan Assessment & Plan (1) EARL (generalized anxiety disorder): Code(s): F41.1 - Generalized anxiety disorder Category: Medical Plan: Will continue patient on current Wellbutrin, sertraline and hydroxyzine to treat his anxiety. He is talking to a therapist now and feels well. (2) HTN (hypertension): Code(s): I10 - Essential (primary) hypertension Category: Medical Qualifiers: Hypertension type: essential hypertension Qualified Code(s): I10 - Essential (primary) hypertension Plan: Patient's blood pressure acceptable today in office. Will continue his current dose of lisinopril 10 mg. Blood pressure goal is to be below 140/90 (3) MDD (major depressive disorder): Code(s): F32.9 - Major depressive disorder, single episode, unspecified Category: Medical Qualifiers: Active/Remission status: currently active Major depression episode severity: mild Major depression recurrence: recurrent Qualified Code(s): F33.0 - Major depressive disorder, recurrent, mild Plan: Patient's PHQ-9 score 0, does have history of depression thus continues on sertraline 100 mg and Wellbutrin 150 with good effect. (4) Class 1 obesity: Code(s): E66.811 - Obesity, class 1 Category: Medical Plan: Patient does understand his BMI is over 30 will work on being more physically active and adapting to better eating habits to reduce his weight Orders: Orders Complete Blood Count no Diff Today I10 - Essential (primary) hypertension Comprehensive [place]. Panel Fast Today I10 - Essential (primary) hypertension Microalbumin, Random (w Creat) Today I10 - Essential (primary) hypertension Lipid Panel Today E78.1 - Pure hyperglyceridemia TSH reflex Free T4 Today E78.1 - Pure hyperglyceridemia Influenza [id number] Immunization Today Z23 - Encounter for immunization
[2025-04-20 15:47] VITALS: BP 124/72; PULSE 77; RESP 18; O2SAT 98; BMI 34.1
== END 2025-04-20 16:20 | disposition home or self-care (01) ==
LOC: HO.HMCH 15:31
PROVIDERS: PCP Physician Assistant; Visit Provider Physician Assistant
DX: Z23 Encounter for immunization (principal)

== ENCOUNTER → 2025-04-20 15:30 | Outpatient (BNVA) | payer OTHER, SELFPAY | PROVIDERS: PCP Physician Assistant; Visit Provider Physician Assistant | DX: Z23 Encounter for immunization (principal) | CPT/HCPCS: 90471; 90656 ==